=== PATIENT | male | born 2005 | race Hispanic/Latino ===

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

== ENCOUNTER 2024-04-13 16:04 | Emergency (ER) | payer OTHER, SELFPAY ==
--- NOTE | ~2024-04-13 | CT_ITS ---
EXAMINATION: CT abdomen pelvis w con DATE: 04/13/2024 19:50 INDICATION: Low abdominal pain. Nausea. Diarrhea. TECHNIQUE: Computed tomography (CT) of the abdomen and pelvis was performed with 100 mL Omnipaque 350 intravenous contrast. Automated exposure control and iterative reconstruction technique were employe d. The dose-length product was 198.04 mGy-cm. COMPARISON: CT abdomen and pelvis 03/06/2023 FINDINGS: The visualized portions of the lung bases are clear without pneumonia or pleural effusion. The heart size is normal. No pericardial effusion. The liver, gallbladder, spleen, pancreas, adrenal glands, and kidneys are normal. There are no dilated loops of bowel. The appendix is normal. There ar e no pathologically enlarged lymph nodes. There is trace pelvic ascites. There is mild lumbar spondyl osis. IMPRESSION: 1. No etiology for the patient's symptoms. Reviewed, dictated and finalized at location A. EY DRIVER
[2024-04-13 16:32] VITALS: BP 101/69; PULSE 64; RESP 18; TEMP 37.2; O2SAT 100
--- OUTSIDE RECORDS SUMMARY | 2024-04-13 16:37 | XMS_ITS | Patient Health Summary ---
Author Organization [facility] Address [address] [place] [address] Care Team Providers Care Elastic Attacher Overlock Name Role Phone Unavailable Primary Care Provider Unavailabl e Note from [facility],non-owned Affiliates and Associated Physician Practices is amultiple site organization consisting of ambulatory clinics and hospital sitesin [place], [place], [place] and [place]. This disclosure is being madepursuant to the Care Everywhere program and may not contain all information available regarding this patient. Last updated 17.[facility] [employer] Allergies No known active allergies Social History Tobacco Use Types Packs/Day Years Used Date Smoking Tobacco: Never Assessed Sex and Gender Information Value Date Recorded Sex Assigned at Not on file Gender Identity Not on file Sexual Orientation Not on file Last Filed Vital Signs Vital Sign Reading Time Taken Comments Blood Pressure 100/60 12/30/2017 10:13 AM CDT Pulse 72 12/30/2017 10:13 AM CDT Temperature 36.5 ??C (97.7 ??F) 12/30/2017 10:13 AM C DT Respiratory Rate 15 12/30/2017 10:13 AM CDT Oxygen Saturation 99% 12/30/2017 10:13 AM CDT Inhaled Oxygen Concentration - - Weight 44.9 kg (99 lb) 12/30/2017 10:13 AM CDT Height 156 cm (5' 1.42 ) 12/30/2017 10:13 AM CDT Body Mass Index 18.45 12/30/2017 10:13 AM CDT Body Mass Index Percentile 50.02% 12/30/2017 10: 13 AM CDT Growth Chart: [facility] (Boys, 2-2 0 Years)
--- OUTSIDE RECORDS SUMMARY | 2024-04-13 16:37 | XMS_ITS | Referral Summary ---
Author Organization [facility] Address [address] [place] [address] Care Team Providers Care Medical Records Clerk Name Role Phone Unavailable Primary Care Provider Unavailabl e Source Comments [facility],non-owned Affiliates and Associated Physician Practices is amultiple site organization consisting of ambulatory clinics and hospital sitesin [place], [place], [place] and [place]. This disclosure is being madepursuant to the Care Everywhere program and may not contain all information available regarding this patient. Last updated 17.[facility] [employer] Allergies No known active allergies Social History [...] 12/30/2017 10: 13 AM CDT Growth Chart: [facility] (Boys, 2-2 0 Years) Plan of Treatment Not on file
--- OUTSIDE RECORDS SUMMARY | 2024-04-13 16:37 | XMS_ITS | Clinical Summary ---
Author Organization [facility] Address [address] [place] [address] Care Team Providers Care Human Relations Manager Name Role Phone Unavailable Primary Care Provider Unavailabl e Source Comments [facility],non-owned Affiliates and Associated Physician Practices is amultiple site organization consisting of ambulatory clinics and hospital sitesin [place], [place], [place] and [place]. This disclosure is being madepursuant to the Care Everywhere program and may not contain all information available regarding this patient. Last updated 17.[facility] [id number] Allergies No known active allergies Social History [...] 12/30/2017 10: 13 AM CDT Growth Chart: [facility] (Boys, 2-2 0 Years) Plan of Treatment Health Maintenance Due Date Last Done Comments HIV SCREENING 12/28/2019 HPV VACCINE (1 - Male 3-dose series) 12/28/2019 MENINGOCOCCAL (Group B) VACC INE (1 of 2 - Standard) 2020 HEPATITIS C SCREENING 12/23/2022 COVID-19 VACCINE (1 - 2023-2 5 season) 2023 INFLUENZA VACCINE (#1) 2023 DTAP/TDAP/TD VACCINES (1 - Tdap) 12/28/2023 HEPATITIS B VACCINE (1 of 3 - 19+ 3-dose series) 12/28/2023 DEPRESSION SCREENING 03/18/2024 ZOSTER VACCINE (1 of 2) 2054 HIB VACCINE Aged Out No longer eligi ble based on patient's age to complete this topic MENINGOCOCCAL VACCINE Aged Out No jose leonardo eligible based on patient's age to complete this topic PNEUMOCOCCAL VACCINE Aged Out No long er eligible based on patient's age to complete this topic
--- NOTE | 2024-04-13 17:15 | ED_ITS ---
HPI - URI/Sore Throat General Chief Complaint: Upper Respiratory Infection <ANTON Penn Last Filed: 04/13/24 17:22> Stated Complaint: FLU S/SX,SORE THROAT <ANTON Penn Last Filed: 04/13/24 17:22> Time Seen by Provider: 04/13/24 17:15 <ANTON Penn Last Filed: 04/13/24 17:22> Focused HPI: Patient is a 18 y/o male who presents to the ED with c/o multiple complaints. Reports he has not felt well over the past 2 days with sore throat, cough, congestion, nausea, diarrhea, body aches, lower back pain, lower abdominal pain, loss of appetite. Has been taking tylenol and ibuprofen for sx's w/o relief. States he has been around several people who have been sick with similar sx's. Denies fevers, vomiting, SOB. Patient also mentions his ex girlfriend recently tested positive for chlamydia. He would like to be tested for this. He denies any penile drainage, testicular pain or swelling, dysuria, hematuria. GENERAL: Well-appearing, thin, and in no acute distress. HEAD: Normocephalic, atraumatic. CHEST: Clear to auscultation. ?No respiratory distress. HEART: Regular rate and rhythm.? ABD: Mild diffuse tenderness in lower abdomen. Normoactive BS NEURO: ?Alert and oriented x3. Patient screened in triage and initial orders placed.? ?Additional care and disposition to be based upon?diagnostic testing and treatment. <ANTON Penn Last Filed: 04/13/24 17:22> Source: patient <ANTON Penn Last Filed: 04/13/24 17:22> Mode of arrival: ambulatory <ANTON Penn Last Filed: 04/13/24 17:22> Limitations: no limitations <ANTON Penn Last Filed: 04/13/24 17:22> Related Data Allergies/Adverse Reactions: Allergies Allergy/AdvReac Type Severity Reaction Status Date / Time No Known Allergies Allergy Verified 04/13/24 16:06 <Meme Irwin PA-C - Last Filed: 04/13/24 17:22> [facility] Past Medical History Medical History: Medical History (Updated 04/13/24 @ 20:21 by Zev Roldan MD) Healthy adult male <Meme Irwin PA-C - Last Filed: 04/13/24 17:22> Surgical History Surgical History: Surgical History (Updated 06/03/23 @ 20:00 by Jameson Tripp MD) No history of previous surgery <Meme Irwin PA-C - Last Filed: 04/13/24 17:22> Exam 2 Narrative: APPEARANCE: No apparent distress. Head: atraumatic. EYES: EOMI, NOSE: Atraumatic NECK: Trachea midline RESPIRATORY: No increased rate of breathing CTAB CARDIOVASCULAR: RRR, soft nontender no guarding room ABDOMINAL: Non-distended MUSCULOSKELETAl: No obvious deformities NEURO: Alert. Moving 4/4 extremities SKIN:: Warm, dry. Normal color PSYCHIATRIC: Normal affect <Zev Roldan MD - Last Filed: 04/13/24 20:22> Course Vital Signs Vital signs: Vital Signs Temperature 99.0 F 04/13/24 16:32 Pulse Rate 64 04/13/24 16:32 Respiratory Rate 18 04/13/24 16:32 Blood Pressure 101/69 04/13/24 16:32 Pulse Oximetry 100 04/13/24 16:32 Oxygen Delivery Room Air 04/13/24 16:32 Temperature 99.0 F 04/13/24 16:32 Pulse Rate 64 04/13/24 16:32 Respiratory Rate 18 04/13/24 16:32 Blood Pressure 101/69 04/13/24 16:32 Pulse Oximetry 100 04/13/24 18:55 Oxygen Delivery Room Air 04/13/24 18:55 <Meme Irwin PA-C - Last Filed: 04/13/24 17:22> Vital Signs Temperature 99.0 F 04/13/24 16:32 Pulse Rate 64 04/13/24 16:32 Respiratory Rate 18 04/13/24 16:32 Blood Pressure 101/69 04/13/24 16:32 Pulse Oximetry 100 04/13/24 16:32 Oxygen Delivery Room Air 04/13/24 16:32 Temperature 99.0 F 04/13/24 16:32 Pulse Rate 64 04/13/24 16:32 Respiratory Rate 18 04/13/24 16:32 Blood Pressure 101/69 04/13/24 16:32 Pulse Oximetry 100 04/13/24 18:55 Oxygen Delivery Room Air 04/13/24 18:55 <Zev Roldan MD - Last Filed: 04/13/24 20:22> MDM - URI/Sore Throat MDM Narrative Medical decision making narrative: MSE by CLAYTON in triage. <Meme Irwin PA-C - Last Filed: 04/13/24 17:22> MSE by CLAYTON in triage. -Course: This is a 18-year-old male presenting with URI symptoms and requesting STD testing. Patient is positive for influenza A. Vital signs are stable and he is well appearing overall. He is requesting antiemetics. I discussed STD testing with the patient and his does not want wait for the results. He would like empiric treatment. This was provided. Patient discharged with return precautions. -DDX includes but is not limited to: viral syndrome, STD exposure -Shared decision making / Disposition: Discharged -RX doxycycline <Zev Roldan MD - Last Filed: 04/13/24 20:22> Lab Data Result diagrams: 04/13/24 18:52 04/13/24 18:52 <Meme Irwin PA-C - Last Filed: 04/13/24 17:22> Labs: Lab Results 04/13/24 04/13/24 Range/Units 18:43 18:52 WBC 5.0 (4.5-10.0) K/mm3 RBC 5.26 (4.6-6.20) M/mm3 Hgb 14.9 (14.0-18.0) g/dL Hct 45.5 (42.0-52.0) % MCV 86.5 (80-100) fl MCH 28.3 (26-34) pg MCHC 32.7 (32-36) g/dl RDW 13.2 (11.5-14.5) % Plt Count 183 (150-375) k/mm3 MPV 9.8 (7.4-10.4) fl Immature Gran % (Auto) 0.0 (0-0.5) % Neut % (Auto) 54.1 (45.5-73.1) % Lymph % (Auto) 30.8 (18.3-44.2) % [place] % (Auto) 14.1 H (2.6-8.5) % Eos % (Auto) 0.6 (0-4.4) % Baso % (Auto) 0.4 (0.2-1.2) % Lymph # (Auto) 1.55 (0.9-3.2) K/mm3 [place] # (Auto) 0.7 H (0.1-0.6) K/mm3 Eos # (Auto) 0.0 (0-0.3) K/mm3 Baso # (Auto) 0.0 (0.0-0.1) K/mm3 Abs Immat Gran (auto) 0.00 (0.00-0.031) K/mm3 Absolute Neuts (auto) 2.7 (1.3-6.7) K/mm3 Absolute Nucleated RBC 0.000 (0.0-0.012) K/mm3 Nucleated RBC % 0.0 (0.0-0.2) % Sodium 140 (134-143) mmol/L Potassium 4.1 (3.4-5.0) mmol/L Chloride 102 (98-107) mmol/L Carbon Dioxide 28 (22-30) mmol/L Anion Gap 10 (4-12) mmol/L BUN 10 (8-21) mg/dL Creatinine 0.79 (0.7-1.3) mg/dL Estim Creat Clear Calc 110 ml/min Estimated GFR > 60 (59 - ) Glucose 90 (65-110) mg/dL Calcium 9.1 (8.9-10.7) mg/dL Magnesium 2.0 (1.6-2.3) mg/dL Total Bilirubin 0.6 (0.2-1.3) mg/dL AST 26 (17-59) U/L ALT 15 (6-50) U/L Alkaline Phosphatase 76 (58-237) U/L Total Protein 8.0 (6.3-8.6) g/dL Albumin 4.8 (3.7-5.6) g/dL Urine Color Yellow (Yellow) Urine Appearance Clear (Clear) Urine pH 6.0 (5.0-9.0) Ur Specific [place] 1.016 (1.001-1.035) Urine Protein Negative (Negative) mg/dL Urine Glucose (UA) Negative (Negative) mg/dL Urine Ketones Negative (Negative) mg/dL Ur Blood (Man) Negative (Negative) Urine Nitrate Negative (Negative) Urine Bilirubin Negative (Negative) Urine Urobilinogen 0.2 (<2.0) mg/dL Leukocyte Esterase Rfl Negative (Negative) CHRISTOPHE/UL C. trachomatis (PCR) Pending Influenza A (RT-PCR) Positive A (Negative) Influenza B (RT-PCR) Negative (Negative) N. gonorrhoeae (PCR) Pending RSV (RT-PCR) Negative (Negative) SARS-CoV-2 RNA (RT-PCR) Negative (Negative) T. vaginalis (PCR) Pending <Meme Irwin PA-C - Last Filed: 04/13/24 17:22> Lab Results 04/13/24 04/13/24 Range/Units 18:43 18:52 WBC 5.0 (4.5-10.0) K/mm3 RBC 5.26 (4.6-6.20) M/mm3 Hgb 14.9 (14.0-18.0) g/dL Hct 45.5 (42.0-52.0) % MCV 86.5 (80-100) fl MCH 28.3 (26-34) pg MCHC 32.7 (32-36) g/dl RDW 13.2 (11.5-14.5) % Plt Count 183 (150-375) k/mm3 MPV 9.8 (7.4-10.4) fl Immature Gran % (Auto) 0.0 (0-0.5) % Neut % (Auto) 54.1 (45.5-73.1) % Lymph % (Auto) 30.8 (18.3-44.2) % [place] % (Auto) 14.1 H (2.6-8.5) % Eos % (Auto) 0.6 (0-4.4) % Baso % (Auto) 0.4 (0.2-1.2) % Lymph # (Auto) 1.55 (0.9-3.2) K/mm3 [place] # (Auto) 0.7 H (0.1-0.6) K/mm3 Eos # (Auto) 0.0 (0-0.3) K/mm3 Baso # (Auto) 0.0 (0.0-0.1) K/mm3 Abs Immat Gran (auto) 0.00 (0.00-0.031) K/mm3 Absolute Neuts (auto) 2.7 (1.3-6.7) K/mm3 Absolute Nucleated RBC 0.000 (0.0-0.012) K/mm3 Nucleated RBC % 0.0 (0.0-0.2) % Sodium 140 (134-143) mmol/L Potassium 4.1 (3.4-5.0) mmol/L Chloride 102 (98-107) mmol/L Carbon Dioxide 28 (22-30) mmol/L Anion Gap 10 (4-12) mmol/L BUN 10 (8-21) mg/dL Creatinine 0.79 (0.7-1.3) mg/dL Estim Creat Clear Calc 110 ml/min Estimated GFR > 60 (59 - ) Glucose 90 (65-110) mg/dL Calcium 9.1 (8.9-10.7) mg/dL Magnesium 2.0 (1.6-2.3) mg/dL Total Bilirubin 0.6 (0.2-1.3) mg/dL AST 26 (17-59) U/L ALT 15 (6-50) U/L Alkaline Phosphatase 76 (58-237) U/L Total Protein 8.0 (6.3-8.6) g/dL Albumin 4.8 (3.7-5.6) g/dL Urine Color Yellow (Yellow) Urine Appearance Clear (Clear) Urine pH 6.0 (5.0-9.0) Ur Specific [place] 1.016 (1.001-1.035) Urine Protein Negative (Negative) mg/dL Urine Glucose (UA) Negative (Negative) mg/dL Urine Ketones Negative (Negative) mg/dL Ur Blood (Man) Negative (Negative) Urine Nitrate Negative (Negative) Urine Bilirubin Negative (Negative) Urine Urobilinogen 0.2 (<2.0) mg/dL Leukocyte Esterase Rfl Negative (Negative) CHRISTOPHE/UL C. trachomatis (PCR) Pending Influenza A (RT-PCR) Positive A (Negative) Influenza B (RT-PCR) Negative (Negative) N. gonorrhoeae (PCR) Pending RSV (RT-PCR) Negative (Negative) SARS-CoV-2 RNA (RT-PCR) Negative (Negative) T. vaginalis (PCR) Pending <Zev Roldan MD - Last Filed: 04/13/24 20:22> Discharge Plan Discharge Clinical Impression: Influenza A, Exposure to STD <Meme Irwin PA-C - Last Filed: 04/13/24 17:22> Patient Disposition: Home, Self-Care <ANTON Penn Last Filed: 04/13/24 17:22> Condition: Stable <ANTON Penn Last Filed: 04/13/24 17:22> Instructions: Antibiotic Form, Influenza (DC) <ANTON Penn Last Filed: 04/13/24 17:22> Additional Instructions: You have the flu. Take Motrin Tylenol for fevers and body aches. Use Zofran for nausea. Please use protection when having sex. <Meme Irwin PA-C - Last Filed: 04/13/24 17:22> Patient Language: Norwegian <Meme Irwin PA-C - Last Filed: 04/13/24 17:22> Prescriptions: New doxycycline hyclate 100 mg capsule 100 mg PO DAILY Qty: 14 0RF ondansetron 4 mg tablet,disintegrating 4 mg PO Q8H PRN (Reason: nausea and vomiting) Qty: 30 0RF No Action dicyclomine 20 mg tablet 20 mg PO TID PRN (Reason: abdominal pain) Qty: 20 0RF ondansetron 4 mg tablet,disintegrating 4 mg PO Q8H Qty: 20 0RF omeprazole 20 mg capsule,delayed release(DR/EC) 20 mg PO DAILY Qty: 20 0RF simethicone 125 mg capsule 125 mg PO QID Qty: 20 0RF Rx Instructions: administer after meals and at bedtime doxycycline hyclate 100 mg tablet 100 mg PO BID 7 Days Qty: 14 0RF <Meme Irwin PA-C - Last Filed: 04/13/24 17:22> Follow-up/Referrals: PHYSICIAN,COTTONSEED MEAT PRESSER [Primary Care Provider] - <Meme Irwin PA-C - Last Filed: 04/13/24 17:22>
[2024-04-13 18:50] LABS: Add Urine Microscopic? NO; Appearance Urine Clear (Clear); Bilirubin Urine Negative (Negative); Blood Urine Negative (Negative); Color Urine Yellow (Yellow); Glucose Urine UA Negative (Negative); Ketones Urine Negative (Negative); Leukocyte Esterase Ur Negative LEU/UL (Negative); Nitrate Urine Negative (Negative); Protein Urine Negative (Negative); Specific Grav Ur 1.016 (1.001-1.035); Urobilinogen Urine 0.2 mg/dL (<2.0)
[2024-04-13 18:55] VITALS: O2SAT 100
[2024-04-13 19:04] LABS: Basophils Percent Auto 0.4 % (0.2-1.2); Eosinophils Percent Auto 0.6 % (0-4.4); Hematocrit 45.5 % (42.0-52.0); Hemoglobin 14.9 g/dL (14.0-18.0); Lymphocytes Absolute Auto 1.55 K/mm3 (0.9-3.2); Lymphocytes Percent Auto 30.8 % (18.3-44.2); Mean Corpuscular HGB Conc 32.7 g/dl (32-36); Mean Corpuscular Hemoglobin 28.3 pg (26-34); Mean Corpuscular Volume 86.5 fl (80-100); Mean Platelet Volume 9.8 fl (7.4-10.4); Monocytes Absolute Auto 0.7 K/mm3 (0.1-0.6); Monocytes Percent Auto 14.1 % (2.6-8.5); Neutrophils Absolute Auto 2.7 K/mm3 (1.3-6.7); Neutrophils Percent Auto 54.1 % (45.5-73.1); Platelet Count Result 183 k/mm3 (150-375); Red Blood Count 5.26 M/mm3 (4.6-6.20); Red Cell Distribution Width 13.2 % (11.5-14.5)
[2024-04-13 19:14] LABS: Alanine Aminotransferase 15 U/L (6-50); Albumin Level 4.8 g/dL (3.7-5.6); Alkaline Phosphatase 76 U/L (58-237); Anion Gap 10 mmol/L (4-12); Aspartate Amino Transferase 26 U/L (17-59); Bilirubin,Total 0.6 mg/dL (0.2-1.3); Blood Urea Nitrogen 10 mg/dL (8-21); Calcium 9.1 mg/dL (8.9-10.7); Carbon Dioxide 28 mmol/L (22-30); Chloride 102 mmol/L (98-107); Estimated CRCL calculation 110 ml/min; Estimated Glomerular Filt Rate > 60; Glucose 90 mg/dL (65-110); Potassium 4.1 mmol/L (3.4-5.0); Sodium 140 mmol/L (134-143)
[2024-04-13 19:40] LABS: Influenza A QL RT-PCR Positive (Negative); Influenza B QL RT-PCR Negative (Negative); RSV RNA, RT-PCR Negative (Negative); SARS-CoV-2 RNA PCR Negative (Negative)
[2024-04-13 20:17] LABS: Trichomonas Vag PCR NOT DETECTED (NOT DETECTE)
--- OUTSIDE RECORDS SUMMARY | 2024-04-13 20:30 | XMS_ITS | Clinical Summary ---
Author Organization [facility] Address [address] [place] [address] Care Team Providers Care Personal Care Assistant Name Role Phone Unavailable Primary Care Provider Unavailabl e Source Comments [facility],non-owned Affiliates and Associated Physician Practices is amultiple site organization consisting of ambulatory clinics and hospital sitesin [place], [place], [place] and [place]. This disclosure is being madepursuant to the Care Everywhere program and may not contain all information available regarding this patient. Last updated 17.[facility] [employer] Allergies No known active allergies Social History [...]
--- OUTSIDE RECORDS SUMMARY | 2024-04-13 20:30 | XMS_ITS | Referral Summary ---
Author Organization [facility] Address [address] [place] [address] Care Team Providers Care Physical Integration Practitioner Name Role Phone Unavailable Primary Care Provider Unavailabl e Source Comments [facility],non-owned Affiliates and Associated Physician Practices is amultiple site organization consisting of ambulatory clinics and hospital sitesin [place], [place], [place] and [place]. This disclosure is being madepursuant to the Care Everywhere program and may not contain all information available regarding this patient. Last updated 17.[facility] [employer] Allergies No known active allergies Social History [...] 12/30/2017 10: 13 AM CDT Growth Chart: [facility] (Boys, 2-2 0 Years) Plan of Treatment Not on file
--- OUTSIDE RECORDS SUMMARY | 2024-04-13 20:30 | XMS_ITS | Patient Health Summary ---
Author Organization [facility] Address [address] [place] [address] Care Team Providers Care Golf Course Laborer Name Role Phone Unavailable Primary Care Provider Unavailabl e Note from [facility],non-owned Affiliates and Associated Physician Practices is amultiple site organization consisting of ambulatory clinics and hospital sitesin [place], [place], [place] and [place]. This disclosure is being madepursuant to the Care Everywhere program and may not contain all information available regarding this patient. Last updated 17.[facility] [employer] Allergies No known active allergies Social History [...] 10: 13 AM CDT Growth Chart: [facility] (Boys, 2-2 0 Years)
[2024-04-13 20:44] LABS: Chlamydia trachomatis NOT DETECTED (NOT DETECTE); Neisseria gonorrhoeae PCR NOT DETECTED (NOT DETECTE)
[2024-04-13] MEDS: DOXYCYCLINE HYCLATE 100 MG TABLET PO (20:53)
[2024-04-13] MEDS: cefTRIAXone 1 GM VIAL 0.5 GM IM (20:54)
[2024-04-13 21:02] VITALS: BP 115/73; PULSE 64; RESP 16; TEMP 36.7; O2SAT 100
== END 2024-04-13 21:00 | disposition home or self-care (01) ==
LOC: ANHED 20:29
PROVIDERS: Physician Assistant; Emergency Provider Emergency Medicine
DX: J10.1 Influenza due to other identified influenza virus with other respiratory manifestations (principal); Z20.2 Contact with and (suspected) exposure to infections with a predominantly sexual mode of transmission; Z20.822 Contact with and (suspected) exposure to COVID-19
CPT/HCPCS: 36415; 74177; 80053; 81003; 83735; 85025; 87491; 87591; 87637; 87661; 96372; 99284; A9270; J0696; J2003; Q9967

== ENCOUNTER 2024-07-16 19:44 | Emergency (ER) | payer OTHER, SELFPAY ==
--- NOTE | ~2024-07-16 | CT_ITS ---
CT abdomen pelvis w con Ordering provider: Yonny Ziegler MD History: 18 years Male with . epigastric pain . Comparison: None. Technique: CT abdomen and pelvis with IV and without oral contrast. Automated exposure control and it erative reconstruction technique were employed. The dose-length product was 182.08 mGy-cm. 100 mL Omn ipaque 350 was given IV. Findings: VISUALIZED LOWER CHEST: Normal. UPPER ABDOMINAL ORGANS: Liver: Normal. Gallbladder: Normal. Spleen: Normal. Stomach/duodenum: Normal. Pancreas: Normal. Adrenals: Normal. Kidneys: Normal. PELVIC ORGANS: The bladder shows thickened wall. Evaluation for cystitis advised BOWEL AND MESENTERY: Colon: No evidence of diverticulitis.. No evidence of appendicitis. Small Bowel: Normal. No obstruction. Peritoneum/mesentery: No free air or free fluid. No mesenteric lymphadenopathy. RETROPERITONEUM: Normal aorta. No retroperitoneal lymphadenopathy. MUSCULOSKELETAL: Superficial soft tissues: The superficial soft tissues are normal. Bones: Normal spine. IMPRESSION: 1. No evidence of appendicitis, diverticulitis or intestinal obstruction. 2. Slightly thickened wall of the lingula. Evaluation for cystitis Reviewed, dictated and finalized at location A.
--- OUTSIDE RECORDS SUMMARY | 2024-07-16 19:46 | XMS_ITS | Clinical Summary ---
Author Organization [facility] Address [address] [place] [address] Care Team Providers Care Bias Cutting Machine Operator Name Role Phone Unavailable Primary Care Provider Unavailabl e Source Comments [facility],non-owned Affiliates and Associated Physician Practices is amultiple site organization consisting of ambulatory clinics and hospital sitesin [place], [place], [place] and [place]. This disclosure is being madepursuant to the Care Everywhere program and may not contain all information available regarding this patient. Last updated 17.[facility] [employer] Allergies No known active allergies Social History Tobacco Use Types Packs/Day Years Used Date Smoking Tobacco: Never Assessed Sex and Gender Information Value Date Recorded Sex Assigned at Not on file Legal Sex Male 6:09 PM CDT Gender Identity Not on file Sexual Orientation Not on file Last Filed Vital Signs Vital Sign Reading Time Taken Comments Blood Pressure 100/60 12/30/2017 10:13 AM CDT Pulse 72 12/30/2017 10:13 AM CDT Temperature 36.5 C (97.7 F) 12/30/2017 10:13 AM CDT Respiratory Rate 15 12/30/2017 10:13 AM CDT [...] series) 12/28/2019 MENINGOCOCCAL (Group B) VACC INE SHARED DECISION-MAKING (1 of 2 - Standard) 2020 HEPATITIS C SCREENING 12/23/2022 COVID-19 VACCINE (1 - 2023-2 5 season) 2023 DTAP/TDAP/TD VACCINES (1 - Tdap) 12/28/2023 HEPATITIS B VACCINE (1 of 3 - 19+ 3-dose series) 12/28/2023 DEPRESSION SCREENING 03/18/2024 INFLUENZA VACCINE (Season Ended) 2024 ZOSTER VACCINE (1 of 2) 2054 HIB VACCINE Aged Out No longer eligi ble based on patient's age to complete this topic MENINGOCOCCAL GROUPS A/C/Y/W VACCINE Aged Out No longer eligible b ased on patient's age to complete this topic PNEUMOCOCCAL VACCINE Aged Out No long er eligible based on patient's age to complete this topic
[2024-07-16 19:48] VITALS: BP 123/73; PULSE 76; RESP 20; TEMP 36.6; O2SAT 100
[2024-07-16 20:14] LABS: Basophils Absolute Auto 0.1 K/mm3 (0.0-0.1); Basophils Percent Auto 0.8 % (0.2-1.2); Eosinophils Absolute Auto 0.1 K/mm3 (0-0.3); Hematocrit 42.5 % (42.0-52.0); Hemoglobin 13.8 g/dL (14.0-18.0); Lymphocytes Absolute Auto 3.76 K/mm3 (0.9-3.2); Lymphocytes Percent Auto 58.9 % (18.3-44.2); Mean Corpuscular HGB Conc 32.5 g/dl (32-36); Mean Corpuscular Hemoglobin 27.8 pg (26-34); Mean Corpuscular Volume 85.7 fl (80-100); Mean Platelet Volume 9.5 fl (7.4-10.4); Monocytes Absolute Auto 0.5 K/mm3 (0.1-0.6); Monocytes Percent Auto 7.4 % (2.6-8.5); Neutrophils Percent Auto 30.9 % (45.5-73.1); Platelet Count Result 196 k/mm3 (150-375); Red Blood Count 4.96 M/mm3 (4.6-6.20); White Blood Count 6.4 K/mm3 (4.5-10.0)
--- OUTSIDE RECORDS SUMMARY | 2024-07-16 20:19 | XMS_ITS | Clinical Summary ---
Author Organization [facility] Address [address] [address] Care Team Providers Care Floor Molder Name Role Phone Unavailable Primary Care Provider Unavailabl e Source Comments [facility],non-owned Affiliates and Associated Physician Practices is amultiple site organization consisting of ambulatory clinics and hospital sitesin [place], [place], [place] and [place]. This disclosure is being madepursuant to the Care Everywhere program and may not contain all information available regarding this patient. Last updated 17.[facility] [employer] Allergies No known active allergies Social History [...]
[2024-07-16 20:25] LABS: Alanine Aminotransferase 16 U/L (6-50); Albumin Level 4.7 g/dL (3.7-5.6); Alkaline Phosphatase 93 U/L (58-237); Anion Gap 8 mmol/L (4-12); Aspartate Amino Transferase 21 U/L (17-59); Bilirubin,Total 0.5 mg/dL (0.2-1.3); Blood Urea Nitrogen 17 mg/dL (8-21); Calcium 8.9 mg/dL (8.9-10.7); Carbon Dioxide 28 mmol/L (22-30); Chloride 103 mmol/L (98-107); Estimated CRCL calculation 98 ml/min; Estimated Glomerular Filt Rate > 60; Glucose 92 mg/dL (65-110); Lipase 56 U/L (23-300); Potassium 3.7 mmol/L (3.4-5.0); Sodium 139 mmol/L (134-143)
[2024-07-16] MEDS: SODIUM CHLORIDE 0.9% IV 1,000 ML 999 ML IV CONT (20:59)
[2024-07-16 21:01] LABS: Magnesium 2.3 mg/dL (1.6-2.3)
--- NOTE | 2024-07-16 21:35 | ED.GENADULT ---
HPI - General Adult General Chief complaint: Unspecified Stated complaint: Weight loss-unable to eat Time Seen by Provider: 07/16/24 20:05 History of Present Illness HPI narrative: Patient is a 18-year-old male who presents emergency department this evening complaining of generalized weakness, loss of appetite and epigastric abdominal pain. Patient states that he feels as though every time he eats the epigastric pain worsens. Patient states that he was at work today and just felt weak and feels dehydrated so he decided to come in for further evaluation. Denies any history of any GI issues, an any history of peptic ulcer disease. Denies any recent illness, any fevers or chills. No additional symptoms or concerns at this time. Related Data Allergies Allergy/AdvReac Type Severity Reaction Status Date / Time No Known Allergies Allergy Verified 07/16/24 19:45 Review of Systems Review of Systems: All systems are reviewed and are negative unless stated otherwise in the HPI. [facility] Past Medical History Medical History Healthy adult male Surgical History Surgical History No history of previous surgery Exam Narrative: General: Alert, awake, afebrile, in no acute distress. HEENT: PERRL, no rhinorrhea, no post nasal drip, oropharynx clear. Neck: Trachea midline, no JVD, no lymphadenopathy. Cardiovascular: Regular rate and rhythm, no murmurs, rubs or gallops, no peripheral edema. Respiratory: Clear to auscultation bilaterally, no tachypnea, no wheezing, no rhonchi, no rubs, no respiratory distress. Abdomen: Soft, nontender, nondistended, no rebound, no guarding, no peritoneal signs. Musculoskeletal: No joint swelling or deformity, normal muscle tone. Skin: No rashes or petechia, no signs of infection. Psychiatric: Alert and oriented, normal behavior and judgment for situation. Neurological: Alert and oriented to person, place, and time. Follows all commands. No focal deficits, speech is clear and fluent. Course Vital Signs Vital signs: Vital Signs Temperature 97.9 F 07/16/24 19:48 Pulse Rate 76 07/16/24 19:48 Respiratory Rate 20 07/16/24 19:48 Blood Pressure 123/73 07/16/24 19:48 Pulse Oximetry 100 07/16/24 19:48 Oxygen Delivery Room Air 07/16/24 19:48 Temperature 97.9 F 07/16/24 19:48 Pulse Rate 76 07/16/24 19:48 Respiratory Rate 20 07/16/24 19:48 Blood Pressure 123/73 07/16/24 19:48 Pulse Oximetry 100 07/16/24 19:48 Oxygen Delivery Room Air 07/16/24 19:48 Medical Decision Making MDM Narrative Medical decision making narrative: The patient was evaluated by myself in the emergency department. History is obtained from patient who is an independent historian and physical exam was performed. External medical records were reviewed at this time. IV was established and pertinent tests were ordered. Patient was administered 1 L IV fluid bolus with normal saline. Laboratory results obtained revealing no acute process. Imaging studies obtained included CT abdomen pelvis with IV contrast which was independently interpreted by me revealing: IMPRESSION: 1. No evidence of appendicitis, diverticulitis or intestinal obstruction. 2. Slightly thickened wall of the lingula. Evaluation for cystitis. Patient denies any urinary symptoms. Differential diagnosis considerations include peptic ulcer disease, gastritis, pancreatitis, biliary colic, dehydration, electrolyte derangements, acute viral syndrome. Comorbidities impacting this visit include none. I have evaluated and discussed social determinants of health with the patient that could potentially impact subsequent diagnosis and treatment plans. On repeat assessment of the patient, reevaluation revealed that the patient is doing well and is in no acute distress. Patient symptoms have improved since he arrived to our emergency department. Repeat vital signs were all reviewed and noted to be stable. Differential diagnosis and treatment plan were discussed with the patient at bedside. Patient agrees with discussion and after shared medical decision making agrees with discharge. All questions were answered to the patient's satisfaction. Patient will follow up with his PCP in 3-5 days. He was also brought to the GI referral instructed to call tomorrow to set up a follow-up appointment regarding epigastric pain. Patient was provided with strict return precautions and instructed to return to the emergency department if any new or worsening symptoms develop. The patient was discharged in stable condition. Vital Signs Vital Signs: Vital Signs Temperature 97.9 F 07/16/24 19:48 Pulse Rate 76 07/16/24 19:48 Respiratory Rate 07/16/24 19:48 Blood Pressure 123/73 05/01/25 19:48 Pulse Oximetry 100 07/16/24 19:48 Oxygen Delivery Room Air 07/16/24 19:48 Temperature 97.9 F 07/16/24 19:48 Pulse Rate 76 07/16/24 19:48 Respiratory Rate 20 07/16/24 19:48 Blood Pressure 123/73 07/16/24 19:48 Pulse Oximetry 100 07/16/24 19:48 Oxygen Delivery Room Air 07/16/24 19:48 Lab Data 07/16/24 20:10 07/16/24 20:10 Labs: Lab Results 07/16/24 07/16/24 Range/Units 20:10 20:47 WBC 6.4 (4.5-10.0) K/mm3 RBC 4.96 (4.6-6.20) M/mm3 Hgb 13.8 L (14.0-18.0) g/dL Hct 42.5 (42.0-52.0) % MCV 85.7 (80-100) fl MCH 27.8 (26-34) pg MCHC 32.5 (32-36) g/dl RDW 13.0 (11.5-14.5) % Plt Count 196 (150-375) k/mm3 MPV 9.5 (7.4-10.4) fl Immature Gran % (Auto) 0.0 (0-0.5) % Neut % (Auto) 30.9 L (45.5-73.1) % Lymph % (Auto) 58.9 H (18.3-44.2) % [place] % (Auto) 7.4 (2.6-8.5) % Eos % (Auto) 2.0 (0-4.4) % Baso % (Auto) 0.8 (0.2-1.2) % Lymph # (Auto) 3.76 H (0.9-3.2) K/mm3 [place] # (Auto) 0.5 (0.1-0.6) K/mm3 Eos # (Auto) 0.1 (0-0.3) K/mm3 Baso # (Auto) 0.1 (0.0-0.1) K/mm3 Abs Immat Gran (auto) 0.00 (0.00-0.031) K/mm3 Absolute Neuts (auto) 2.0 (1.3-6.7) K/mm3 Absolute Nucleated RBC 0.000 (0.0-0.012) K/mm3 Nucleated RBC % 0.0 (0.0-0.2) % Sodium 139 (134-143) mmol/L Potassium 3.7 (3.4-5.0) mmol/L Chloride 103 (98-107) mmol/L Carbon Dioxide 28 (22-30) mmol/L Anion Gap 8 (4-12) mmol/L BUN 17 (8-21) mg/dL Creatinine 0.82 (0.7-1.3) mg/dL Estim Creat Clear Calc 98 ml/min Estimated GFR > 60 (59 - ) Glucose 92 (65-110) mg/dL Calcium 8.9 (8.9-10.7) mg/dL Magnesium 2.3 (1.6-2.3) mg/dL Total Bilirubin 0.5 (0.2-1.3) mg/dL AST 21 (17-59) U/L ALT 16 (6-50) U/L Alkaline Phosphatase 93 (58-237) U/L Total Protein 8.0 (6.3-8.6) g/dL Albumin 4.7 (3.7-5.6) g/dL Lipase 56 (23-300) U/L Discharge Plan Discharge Clinical Impression: Abdominal pain, epigastric Patient Disposition: Home Condition: Improved Instructions: Antibiotic Form, Abdominal Pain (ED) Additional Instructions: Please follow-up with the GI doctor you were provided with today within the next 3-5 days. Return to the emergency department if any new or worsening symptoms develop. Patient Language: Azeri Prescriptions: No Action dicyclomine 20 mg tablet 20 mg PO TID PRN (Reason: abdominal pain) Qty: 20 0RF ondansetron 4 mg tablet,disintegrating 4 mg PO Q8H Qty: 20 0RF omeprazole 20 mg capsule,delayed release(DR/EC) 20 mg PO DAILY Qty: 20 0RF simethicone 125 mg capsule 125 mg PO QID Qty: 20 0RF Rx Instructions: administer after meals and at bedtime doxycycline hyclate 100 mg tablet 100 mg PO BID 7 Days Qty: 14 0RF doxycycline hyclate 100 mg capsule 100 mg PO DAILY Qty: 14 0RF ondansetron 4 mg tablet,disintegrating 4 mg PO Q8H PRN (Reason: nausea and vomiting) Qty: 30 0RF Follow-up/Referrals: PHYSICIAN,ONLINE MEDIA BUYER [Primary Care Provider] - Chico Melchor MD [Physician] - 3 Days Stand Alone Forms: Work/School Release IP Time of Disposition: 21:55
[2024-07-16 22:12] VITALS: BP 118/74; PULSE 78; RESP 15; O2SAT 99
== END 2024-07-16 22:13 | disposition home or self-care (01) ==
PROVIDERS: Emergency Provider Emergency Medicine
DX: R10.13 Epigastric pain (principal)
CPT/HCPCS: 36415; 74177; 80053; 83690; 83735; 85025; 96360; 99283; J7030; Q9967